=== PATIENT | male | born 1965 | race African-American/Black ===

== ENCOUNTER 2019-05-10 20:54 | Emergency (ER) | payer MEDICAID ==
[~2019-05-10] VITALS: Ht 177.8 cm; Wt 150.0 kg
[2019-05-10 21:35] VITALS: BP 161/92
[2019-05-10] MEDS ORDERED: HYDROCODONE/ACETAMINOPHEN 5/325MG TABLET PO ONE (21:45)
[2019-05-10] MEDS ORDERED: ACETAMINOPHEN 325MG TABLET PO ONE (22:15)
[2019-05-10] MEDS ORDERED: IBUPROFEN 400MG TABLET PO ONE (23:30)
== END 2019-05-10 23:45 | disposition home or self-care (01) ==
LOC: ER 20:54
DX: S16.1XXA Strain of muscle, fascia and tendon at neck level, initial encounter (principal); I10 Essential (primary) hypertension; R51 Headache; R42 Dizziness and giddiness; J45.909 Unspecified asthma, uncomplicated; V48.1XXA Car passenger injured in noncollision transport accident in nontraffic accident, initial encounter; Y93.89 Activity, other specified; Y92.89 Other specified places as the place of occurrence of the external cause; Y99.8 Other external cause status
CPT/HCPCS: 99284